=== PATIENT | male | born 1990 | race Caucasian/White ===

== ENCOUNTER → 2017-06-01 | Outpatient (CLI) | payer OTHER | LOC: BMCIMAGING 09:59 | PROVIDERS: ATTEND Family Medicine | DX: N50.811 Right testicular pain (principal); N50.812 Left testicular pain ==

== ENCOUNTER → 2018-01-15 | Outpatient (CLI) | payer OTHER | LOC: FIMAGING 08:25 | PROVIDERS: ATTEND Physician Assistant Medical | DX: G43.109 Migraine with aura, not intractable, without status migrainosus (principal); M26.69 Other specified disorders of temporomandibular joint ==

== ENCOUNTER 2018-05-04 18:46 | Emergency (ER) | payer OTHER ==
--- NOTE | 2018-05-04 19:02 | EDPHY ---
HPI/HX/ROS/PE/MDM Narrative: CLINICAL IMPRESSION: Superficial laceration to the left ring and 5th Digit ASSESSMENT/PLAN: Oli Sinha this is a 27-year-old male with a history of migraines who presents for evaluation of a laceration sustained to his left ring and pinky finger just prior to arrival. Patient is not toxic appearing, he is in no distress. Physical examination reveals a 2.5 cm laceration across the distal tip of the left 4th distal phalanx as well as a subcentimeter laceration to the palmar, radial aspect of the left 5th distal phalanx. There is no evidence of deep structure involvement, neurovascular compromise, foreign body, or bony involvement. The wounds were not contaminated, tetanus status was updated today. The wounds were irrigated and then repaired as discussed in the procedure note, the patient tolerated this well. Wound care instructions discussed with patient and significant other. He does not have a primary care provider, I provided a referral for him. He will return to the emergency department in 7-10 days for suture removal, sooner if he has any concerns. Local wound care instructions discussed. Return precautions discussed- he will return for increased pain, signs of infection, fever, vomiting, if the wound opens or for any other concerns. Patient and significant other both verbalize understanding and are in agreement with plan] DIFFERENTIAL DIAGNOSIS: Includes but not limited to laceration of tendon or vascular structure, underlying fracture, laceration with retained FB ED PROCEDURES: Laceration Repair x2 Verbal consent obtained by patient. Risks discussed, including but not limited to infection, pain, retained foreign body, need for additional repair, poor cosmetic result, tendon damage, nerve damage, poor wound healing, vascular damage. Alternatives to repair discussed. [place] protocol used to establish correct patient, procedure, equipment, it support analyst, and site. Anesthesia obtained by local infiltration. Anesthetized with 1% lidocaine without epi. Laceration #1- most distal portion of the left ring distal phalanx, 2.5 cm in length approximately 5 mm deep, simple. Laceration #2- radial, palmar aspect of the distal left 5th digit phalanx, 1 cm in length, 2 mm deep, simple. Patient was prepped and draped in usual sterile fashion. Hemostasis achieved with direct pressure. Wounds were explored through full range of motion and entire depth of wound probed and visualized with gloved finger. No suspicion for nerve damage, tendon damage, underlying fracture, vascular damage, foreign body, or contamination. Areas were cleansed with Shur-Clens and irrigated with sterile saline as per protocol. No foreign body or material removed. Repair method 5.0 Prolene was used on both lacerations, a single suture on his left 5th digit and 7 simple interrupted sutures to his right ring finger. [ Both lacerations were well aligned, closely approximated. Wounds were dressed with antibiotic ointment and a nonstick dressing, his ring finger was placed in a cage splint for protection. Patient tolerated well with no immediate complications. Wound care: Clean and dry x 24 hours, gently clean with soap and water, cover with topical antibiotic ointment/bandage. Suture/Staple removal: 7-10 Days CHIEF COMPLAINT: Laceration HPI: Oli Sinha this is a 27-year-old male with a history of migraines who presents for evaluation of a laceration sustained to his left ring and pinky finger just prior to arrival. Patient was pulling a new cuff: I fell out of its sleeve when he accidentally sliced his left ring and pinky finger. It immediately started bleeding however he was able to get the bleeding controlled with constant pressure. Patient has chronic diminished sensation at the fingertips, unchanged. He denies any difficulty with mobility. He is right handed, he is not up-to-date on his tetanus status. He denies any other injury or complaints. PAST MEDICAL HISTORY: Migraines Pertinent Past Surgical History: Noncontributory Social History: Denies alcohol or illicit drug use. REVIEW OF SYSTEMS: All other systems negative Constitutional: No fever, no chills Musculoskeletal: No deformity, no joint pain Skin: Laceration to left distal ring and pinky fingers Neurological: No sensory loss or weakness, 2 point discrimination intact. PHYSICAL EXAM: General Appearance: Alert, oriented, appropriate for age, cooperative, NAD, well hydrated, non-toxic appearing, VSS, no hypoxia. Neurological: Alert and oriented x 3 Skin: Left ring finger with approximately 2.5 cm laceration on the distal phalanx. This does not involve the interphalangeal joint or nail. Patient also with a 1 cm laceration to the radial, palmar aspect of the distal phalanx 5th digit. This does not involve the interphalangeal joint or nails. Musculoskeletal: Denies finger pain or decreased mobility MEDICAL DECISION MAKING: Patient was seen with Dr. Malagon. Diagnosis: Left ring and pinky finger lacerations . Summary: See assessment and plan for summary of ED visit Clinical lab tests: NA Independent visualization of images, tracing, or specimens: KARINA Decision to obtain medical records or history from someone other than the patient NA Review / Summarize previous medical records No Discussed patient with another provider Yes, Dr. Malagon (Faviola Alonso) ED Course: This patient was seen and examined by me. He presents with a laceration of the finger tip. Neurovascularly intact except for some chronic decreased sensation. Motor intact to active resistance at the PIP and the DIP. I agree with Delma's assessment and plan. (Sondra Malagon) - Data Points Medications Given: Discontinued Medications Diphtheria/Tetanus/Acell Pertussis (Boostrix) 0.5 ml IM .ONCE ONE Stop: 05/04/18 19:11 Last Admin: 05/04/18 19:17 Dose: 0.5 ml General Initial Vital Signs: Initial Vital Signs Temperature (C) 36.7 C 05/04/18 18:50 Heart Rate 59 L 05/04/18 18:50 Respiratory Rate 20 05/04/18 18:50 Blood Pressure 90/65 L 05/04/18 18:50 O2 Sat (%) 99 05/04/18 18:50 O2 Delivery Mode Room Air Allergies/Adverse Reactions: Penicillins Allergy (Verified 05/04/18 18:50) Home Medications: Medication Instructions Recorded Nortriptyline HCl 05/04/18 Departure - Departure Disposition: Home, Routine, Self-Care Clinical Impression: Laceration of multiple sites Condition: Good Instructions: Laceration (ED) Additional Instructions: It is important that you keep your dressing on for the next 24 hr, do not get your incision wet for 24-48 hours. Do not soak your incision until the sutures are out. You may cleanse your wounds with regular soap and water twice per day. Please apply antibiotic ointment after you clean them and then cover with a clean dry dressing. There was no evidence of a deep structure or tendinous injury however if you feel a pop, or unable to bend or extend her finger please seek evaluation immediately. Return to the emergency department for signs of infection including redness, swelling, drainage or significantly worsening or uncontrolled pain. You will need your sutures removed in approximately 7-10 days, this can be done at your primary care provider's office or in the emergency department. DISCHARGE INSTRUCTIONS FROM YOUR DOCTOR Thank you for visiting our emergency department today. Please keep in mind that discharge from the emergency department does not mean that there is nothing wrong - it simply means that we have not identified an emergency condition that requires further evaluation or treatment in the hospital. You should always plan to follow up with primary care for re-evaluation, also for suture removal in 7-10 days. If you have been referred to a specialist, please call as soon as possible (today or tomorrow) to schedule your follow up appointment at the appropriate time. People present with illnesses and injuries in different ways, and it is always possible that we have missed something. You may always return for re-evaluation if symptoms worsen or if they are not improving or if you develop new/different symptoms. Again, thank you for choosing our emergency department. We hope that you feel better. Referrals: NONE *PRIMARY CARE P,. [Primary Care Provider] - As per Instructions Justin Stone MD [Medical Doctor] - Follow Up Only If Needed
[2018-05-04] MEDS ORDERED: TDAP ADULT 0.5 ML INJ (BOOSTRIX) IM ONE (19:10)
[2018-05-04 20:32] VITALS: BP 115/80
== END 2018-05-04 20:32 | disposition home or self-care (01) ==
PROC: 0HQGXZZ Repair Left Hand Skin, External Approach (ICD-10-PCS; principal; 2018-05-04)
DX: S61.217A Laceration without foreign body of left little finger without damage to nail, initial encounter (principal); S61.215A Laceration without foreign body of left ring finger without damage to nail, initial encounter; W26.8XXA Contact with other sharp object(s), not elsewhere classified, initial encounter; Z23 Encounter for immunization